=== PATIENT | male | born 1955 ===

== ENCOUNTER 2018-09-04 13:13 | Inpatient (IN) | payer OTHER ==
--- NOTE | 2018-09-04 13:28 | PDOC ---
History of Present Illness - General Chief Complaint: Weakness Stated Complaint: CHEST PAIN,AMS History Source: Patient Exam Limitations: No Limitations - History of Present Illness Initial Comments: 09/04/18 13:53 63 yo M with a hx of schizophrenia paranoia type, HTN, and HLD presents to the emergency department PAT with altered mental status per his bilingual social worker at [facility]. Per the bilingual social worker, he presented this afternoon with slurred speech , labile consciousness, unable to tie his shoes, and having unsteady gait. At baseline, he knows everyone around him, the date, where is at, and with a steady gait and appropriate articulation. When the patient was asked why he was acting like this earlier, he said because of bad dreams. Denies any symptoms and states he feels perfectly fine. Denies the following: fever, chills, nausea , vomiting, visual changes, nausea, vomiting, nasal congestion/rhinorrhea, ear/ nose/throat pain, SOB, chest pain, abdominal pain, dysuria, hematuria, diarrhea , melena, hematochezia, and leg pain/swelling. Denies recent sick contacts. Pmhx: Refer to above Shx: None Allergies: haloperidol, mobaine, stellacine Social: Denies substance abuse and alcohol. Endorses tobacco. Past History - Past Medical History Allergies/Adverse Reactions: Allergies Allergy/AdvReac Type Severity Reaction Status Date / Time haloperidol [From Haldol] Allergy Verified 09/04/18 13:32 mobaine Allergy Uncoded 09/04/18 13:32 stellacine Allergy Uncoded 09/04/18 13:32 Review of Systems - Review of Systems Able to Perform ROS?: Yes Is the patient limited Serbian proficient: No Constitutional: No: Chills, Diaphoresis, Fever, Malaise, Weakness HEENTM: No: Eye Pain, Recent change in vision, Ear Pain, Nose Pain, Throat Pain , Mouth Pain, Difficulty Swallowing, Mouth Swelling Respiratory: No: Cough, Shortness of Breath, SOB with Exertion, Hemoptysis Cardiac (ROS): No: Chest Pain, Edema, Irregular Heart Rate, Lightheadedness, Palpitations, Syncope ABD/GI: No: Constipated, Diarrhea, Nausea, Poor Appetite, Poor Fluid Intake, Rectal Bleeding, Vomiting, Indigestion, Abdominal cramping, Tarry Stools : No: Burning, Dysuria, Discharge, Hematuria, Pain, Urgency Musculoskeletal: No: Back Pain, Muscle Pain, Neck Pain Integumentary: No: Erythema, Lesions, Rash Neurological: No: Headache, Seizure, Weakness, Unsteady Gait, Dizziness Psychiatric: No: Stressors Endocrine: No: Unexplained Weight Loss Hematologic/Lymphatic: No: Anemia *Physical Exam - Physical Exam General Appearance: Yes: Nourished, Appropriately Dressed, Thin. No: Apparent Distress, Intoxicated HEENT: positive: EOMI, NETO, Normal Voice, Symmetrical, Hearing Grossly Normal. negative: Pale Conjunctivae, Scleral Icterus (R), Scleral Icterus (L), Muffled /Hoarse voice, Nasal Congestion, Rhinorrhea, Excessive drooling Neck: positive: Trachea midline. negative: Tender, Lymphadenopathy (R), Lymphadenopathy (L), Tender lateral, Tender midline Respiratory/Chest: positive: Lungs Clear, Normal Breath Sounds. negative: Chest Tender, Respiratory Distress, Accessory Muscle Use, Decreased Breath Sounds, Paradoxal Breathing, Crackles, Rales, Rhonchi, Stridor, Wheezing Cardiovascular: positive: Regular Rhythm, Regular Rate, S1, S2. negative: Systolic Murmur Gastrointestinal/Abdominal: positive: Normal Bowel Sounds, Flat, Soft. negative : Tender, Organomegaly, Pulsatile Mass, Rebound Lymphatic: negative: Adenopathy Musculoskeletal: positive: Normal Inspection. negative: CVA Tenderness, CVA Tenderness (R), CVA Tenderness (L), Vertebral Tenderness Extremity: positive: Normal Capillary Refill, Normal Inspection, Normal Range of Motion, Pelvis Stable. negative: Tender, Swelling, Calf Tenderness Integumentary: positive: Normal Color, Dry, Warm. 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 negative: Fully Oriented (oriented to self and place. Knows the month and year. Does not know the day), Facial Droop, Sensory Deficit, Finger to Nose ED Treatment Course - LABORATORY CBC & Chemistry Diagram: 09/04/18 13:45 09/04/18 13:45 Medical Decision Making - Medical Decision Making 09/04/18 14:35 63 yo M with a hx of schizophrenia paranoia type, HTN, and HLD presents to the emergency department [place] with altered mental status per his bilingual social worker at [facility] Initial vitals: Initial Vital Signs Temp Pulse Resp BP Pulse Ox 101.6 F H 83 20 119/66 95 09/04/18 13:27 09/04/18 13:27 09/04/18 13:27 09/04/18 13:27 09/04/18 13:27 Work up: patient presents with AMS to the bilingual social worker. the patient denies all symptoms and states he is normal. on physical exam, his eyes were constricted and he had decreased breath sounds on the right side. will order the following labs to elucidate infectious source: cbc, cmp, trops, UA, urine culture, urine tox, lactic acid, cxr, ekg. treatment: initially will give 1 L of NS and 1 gram of acetaminophen. 09/04/18 14:55
[2018-09-04] MEDS ORDERED: ACETAMINOPHEN INJECTION 100 ML IVPB ONE (13:31)
[2018-09-04] MEDS ORDERED: ACETAMINOPHEN 1000 MG/100 ML VIAL (NON FORMULARY) IVPB ONE (13:51)
[2018-09-04] MEDS ORDERED: SODIUM CHLORIDE 1,000 ML IV STA (13:51)
[2018-09-04 14:31] LABS: BASO % 0.5 % (0-2.0); HEMATOCRIT 33.3 % (35.4-49); HEMOGLOBIN 11.8 GM/dL (11.7-16.9); MCH 29.8 pg (25.7-33.7); MCHC 35.5 g/dl (32.0-35.9); MEAN PLT VOLUME 7.4 fl (7.5-11.1); MONO % 10.3 % (3.8-10.2); NEUT % 83.2 % (42.8-82.8); PLATELET COUNT 292 K/MM3 (134-434); RBC 3.97 M/mm3 (4.00-5.60); RDW 14.6 % (11.9-15.9); VENOUS PC02 32.9 mmHg (38-52); VENOUS PH 7.43 (7.32-7.42); VENOUS PO2 38.8 mmHg (28-48); WHITE BLOOD COUNT 9.9 K/mm3 (4.0-10.0)
[2018-09-04 14:44] LABS: INR 1.14 (0.83-1.09); PROTHROMBIN TIME (PATIENT) 13.5 SEC (9.7-13.0)
[2018-09-04 14:46] LABS: ACTIVATED PTT 47.5 SECONDS (25.2-36.5)
[2018-09-04 14:59] LABS: ALBUMIN 2.9 g/dl (3.4-5.0); ALK PHOS 73 U/L (45-117); ANION GAP 10 MMOL/L (8-16); BILIRUBIN,TOTAL 0.3 mg/dL (0.2-1); BLOOD UREA NITROGEN 32 mg/dL (7-18); CALCIUM 8.6 mg/dL (8.5-10.1); CHLORIDE 98 mmol/L (98-107); CO2 22 mmol/L (21-32); CREATININE 1.2 mg/dL (0.55-1.3); GLUCOSE,RANDOM 132 mg/dL (74-106); POTASSIUM 3.8 mmol/L (3.5-5.1); SGOT/AST 29 U/L (15-37); SGPT/ALT 23 U/L (13-61); SODIUM 130 mmol/L (136-145); TOT PROT 7.9 g/dl (6.4-8.2)
--- NOTE | 2018-09-04 15:44 | PDOC ---
Attending Attestation - Resident Resident Name: SybilBarney - ED Attending Attestation I have performed the following: I have examined & evaluated the patient, The case was reviewed & discussed with the resident, I agree w/resident's findings & plan - HPI HPI: 09/04/18 15:41 63-year-old male with multiple medical problems brought in by his counter caser for altered mental status and generalized confusion today. Appear generally weak , pt has no specific complaints. - Physicial Exam PE: 09/04/18 15:41 fever, HD stable well appearing, improved mental status s/p tylenol per counter caser at bedside decreased breath sounds R mid lung field and L base, no crackles or wheeze heart regular abd soft no edema/calf ttp - Medical Decision Making 09/04/18 15:43 63y/o M with fever. sepsis workup initiated ivf, anti-pyretic ua, cxr abx mental status improved after defervesced, + findings on cxr. meningitis less likely admit 09/04/18 16:23 pna on cxr, labs wnl, lactate 1.[address] head pending admit Heart Score/ECG Review #1 ECG reviewed & interpreted by me at: 13:34 General ECG Interpretation: Sinus Rhythm, Normal Rate (81), Normal Intervals ( qtc 413), No acute ischemic changes
[2018-09-04 16:04] LABS: URINE APPEARANCE SLCLOUDY; URINE BILIRUBIN NEGATIVE (<2.0 mg/dL); URINE COLOR AMBER; URINE GLUCOSE (UA) NEGATIVE (NEGATIVE); URINE KETONE TRACE (NEGATIVE); URINE LEUK ESTERASE NEGATIVE (NEGATIVE); URINE NITRITE NEGATIVE (NEGATIVE); URINE PROTEIN 1+ (NEGATIVE); URINE UROBILINOGEN 4.0 E.U/dl mg/dL (0.2-1.0)
[2018-09-04 16:13] LABS: EPI CELLS RARE /HPF (FEW); URINE MUCUS RARE
[2018-09-04] MEDS ORDERED: AZITHROMYCIN IVPB 500 MG in DEXTROSE 5%-WATER - 250 ML IVPB ONE (16:23)
[2018-09-04] MEDS ORDERED: CEFTRIAXONE 1,000 MG in DEXTROSE 5%-WATER - 50 ML IVPB ONE (16:23)
[2018-09-04] MEDS ORDERED: AZITHROMYCIN IVPB 500 MG/250 ML BAG IVPB ONE (17:01)
[2018-09-04] MEDS ORDERED: CEFTRIAXONE 1 GM/50 ML BAG ONE (17:01)
[2018-09-04] MEDS ORDERED: ALBUTEROL SO4 0.083% IH SOL 2.5 MG/3 ML VIAL.NEB. NEB PRN (18:12)
[2018-09-04 18:32] LABS: COCAINE, UR NEGATIVE ng/ml (CUTOFF=300); METHADONE, UR NEGATIVE ng/ml (CUTOFF=300); OPIATES, URI NEGATIVE ng/ml (CUTOFF=300); PHENCYCLIDINE,URINE NEGATIVE ng/ml (CUTOFF=25); URINE AMPHETAMINES NEGATIVE ng/ml (CUTOFF=500); URINE BARBITURATES NEGATIVE ng/ml (CUTOFF=200); URINE BENZODIAZEPINES NEGATIVE ng/ml (CUTOFF=200)
[2018-09-04] MEDS: SODIUM CHLORIDE 1,000 ML IV SCH (18:32)
--- NOTE | 2018-09-04 18:36 | HP ---
CHIEF COMPLAINT: weakness, altered mental status PCP: HISTORY OF PRESENT ILLNESS: 63 yo M with a hx of schizophrenia paranoia type, HTN, and HLD presents to the emergency department NOEL with altered mental status per his delinquency prevention social worker at [employer]. Per the delinquency prevention social worker, he presented this afternoon with slurred speech , labile consciousness, unable to tie his shoes, and having unsteady gait. At baseline, he knows everyone around him, the date, where he is, and with a steady gait and appropriate articulation. pt seen in ED, sleepy, arousable, garbled speech, Denies the following: fever, chills, nausea, vomiting, visual changes, nausea, vomiting, nasal congestion/rhinorrhea, ear/nose/throat pain, SOB, chest pain, abdominal pain, dysuria, hematuria, diarrhea, melena, hematochezia, and leg pain /swelling. ER course was notable for: (1) Febrile 101.6 (2)Chest xray left lung infiltrate (3)CT head no acute findings Recent Travel: PAST MEDICAL HISTORY:Schizophrenia, HTN, DM, BPH PAST SURGICAL HISTORY: Social History: Smoking:denies Alcohol:denies Drugs: denies Family History: Allergies haloperidol [From Haldol] Allergy (Verified 09/04/18 13:32) mobaine Allergy (Uncoded 09/04/18 13:32) stellacine Allergy (Uncoded 09/04/18 13:32) HOME MEDICATIONS: Home Medications Medication Instructions Recorded Albuterol Sulfate Inhaler - 1 - 2 inh PO Q4H 09/04/18 [Ventolin Hfa Inhaler -] Citalopram Hydrobromide 20 mg PO DAILY 09/04/18 [Citalopram HBr] Clozapine 200 mg PO TID 09/04/18 Cyclobenzaprine HCl 10 mg PO TID 09/04/18 Finasteride 5 mg PO DAILY 09/04/18 Hydroxyzine HCl 50 mg PO DAILY 09/04/18 Linagliptin [Tradjenta] 5 mg PO DAILY 09/04/18 Meloxicam 15 mg PO DAILY 09/04/18 Ramipril [Altace] 5 mg PO DAILY 09/04/18 Tamsulosin HCl 0.4 mg PO DAILY 09/04/18 metFORMIN HCL [Metformin HCl] 500 mg PO DAILY 09/04/18 REVIEW OF SYSTEMS unable to assess, alt mental status PHYSICAL EXAMINATION Vital Signs - 24 hr 09/04/18 09/04/18 09/04/18 13:27 13:47 14:00 Temperature 101.6 F H 101.6 F H Pulse Rate 83 Respiratory 20 Rate Blood Pressure 119/66 O2 Sat by Pulse 95 97 Oximetry (%) GENERAL: Awake, alert, and fully oriented, in no acute distress. HEAD: Normal with no signs of trauma. EYES: Pupils equal, round and reactive to light, extraocular movements intact, sclera anicteric, conjunctiva clear. No lid lag. EARS, NOSE, THROAT: Ears normal, nares patent, oropharynx clear without exudates. Moist mucous membranes. NECK: Normal range of motion, supple without lymphadenopathy, JVD, or masses. LUNGS: Breath sounds equal, clear to auscultation bilaterally. No wheezes, and no crackles. No accessory muscle use. HEART: Regular rate and rhythm, normal S1 and S2 without murmur, rub or gallop. ABDOMEN: Soft, nontender, not distended, normoactive bowel sounds, no guarding, no rebound, no masses. No hepatomegaly or splenomegaly. MUSCULOSKELETAL: Normal range of motion at all joints. No bony deformities or tenderness. No CVA tenderness. UPPER EXTREMITIES: 2+ pulses, warm, well-perfused. No cyanosis. No clubbing. No peripheral edema. LOWER EXTREMITIES: 2+ pulses, warm, well-perfused. No calf tenderness. No peripheral edema. NEUROLOGICAL: Cranial nerves II-XII intact. Normal speech. Normal gait. PSYCHIATRIC: Cooperative. Good eye contact. Appropriate mood and affect. SKIN: Warm, dry, normal turgor, no rashes or lesions noted, normal capillary refill. Laboratory Results - last 24 hr 09/04/18 09/04/18 09/04/18 13:45 13:45 13:45 WBC 9.9 RBC 3.97 L Hgb 11.8 Hct 33.3 L MCV 84.0 MCH 29.8 MCHC 35.5 RDW 14.6 Plt Count 292 MPV 7.4 L Absolute Neuts (auto) 8.2 H Neutrophils % 83.2 H Lymphocytes % 6.0 L Monocytes % 10.3 H Eosinophils % 0.0 Basophils % 0.5 Nucleated RBC % 0 PT with INR 13.50 H INR 1.14 H PTT (Actin FS) 47.5 H VBG pH 7.43 H POC VBG pCO2 32.9 L POC VBG pO2 38.8 Mixed VBG HCO3 21.3 Sodium Potassium Chloride Carbon Dioxide Anion Gap BUN Creatinine Creat Clearance w eGFR Random Glucose Lactic Acid Calcium Total Bilirubin AST ALT Alkaline Phosphatase Creatine Kinase Creatine Kinase Index CK-MB (CK-2) Troponin I Total Protein Albumin Urine Color Urine Appearance Urine pH Ur Specific [place] Urine Protein Urine Glucose (UA) Urine Ketones Urine Blood Urine Nitrite Urine Bilirubin Urine Urobilinogen Ur Leukocyte Esterase Urine WBC (Auto) Urine RBC (Auto) Ur Epithelial Cells Urine Mucus 09/04/18 09/04/18 09/04/18 13:45 13:45 13:45 WBC RBC Hgb Hct MCV MCH MCHC RDW Plt Count MPV Absolute Neuts (auto) Neutrophils % Lymphocytes % Monocytes % Eosinophils % Basophils % Nucleated RBC % PT with INR INR PTT (Actin FS) VBG pH POC VBG pCO2 POC VBG pO2 Mixed VBG HCO3 Sodium 130 L Potassium 3.8 Chloride 98 Carbon Dioxide 22 Anion Gap 10 BUN 32 H Creatinine 1.2 Creat Clearance w eGFR > 60 Random Glucose 132 H Lactic Acid 1.5 Calcium 8.6 Total Bilirubin 0.3 AST 29 ALT 23 Alkaline Phosphatase 73 Creatine Kinase 182 Creatine Kinase Index 0.0 CK-MB (CK-2) < 1.0 Troponin I < 0.02 Total Protein 7.9 Albumin 2.9 L Urine Color Urine Appearance Urine pH Ur Specific [place] Urine Protein Urine Glucose (UA) Urine Ketones Urine Blood Urine Nitrite Urine Bilirubin Urine Urobilinogen Ur Leukocyte Esterase Urine WBC (Auto) Urine RBC (Auto) Ur Epithelial Cells Urine Mucus 09/04/18 09/04/18 13:45 15:48 WBC RBC Hgb Hct MCV MCH MCHC RDW Plt Count MPV Absolute Neuts (auto) Neutrophils % Lymphocytes % Monocytes % Eosinophils % Basophils % Nucleated RBC % PT with INR INR PTT (Actin FS) VBG pH POC VBG pCO2 POC VBG pO2 Mixed VBG HCO3 Sodium Potassium Chloride Carbon Dioxide Anion Gap BUN Creatinine Creat Clearance w eGFR Random Glucose Lactic Acid Calcium Total Bilirubin AST ALT Alkaline Phosphatase Creatine Kinase Creatine Kinase Index CK-MB (CK-2) < 1.0 Troponin I Total Protein Albumin Urine Color Ivelisse Urine Appearance Slcloudy Urine pH 5.0 Ur Specific [place] 1.023 Urine Protein 1+ H Urine Glucose (UA) Negative Urine Ketones Trace H Urine Blood 1+ H Urine Nitrite Negative Urine Bilirubin Negative Urine Urobilinogen 4.0 e.u/dl Ur Leukocyte Esterase Negative Urine WBC (Auto) 11 Urine RBC (Auto) 4 Ur Epithelial Cells Rare Urine Mucus Rare ASSESSMENT/PLAN: Michael Trotter is a 63 yr old M, medical condition, HTN, DM, Schizophrenia, HLD, BPH admitted for Admitting Diagnosis PNA Altered mental status Active Problems HTN HLD DM Schizophrenia BPH #CAP -duonebs prn -IVF -fio2 to keep o2 >94% -cont with rocephin, azithro IV -blood, urine cx pending -lactic wnl #Hyponatremia-mild -IVF 0.9ns #AMS likely due to infectious process -CT head negative -pt on flexeril, hydroxyzine- will hold #Schizophrenia-stable -on Clozapine #HTN-controlled -resume Altace #BPH -on flomax, proscar #DM -FS monitoring -ISC -hold po meds -a1c ordered GI/DVT Prophylaxis Dispo: requires inpatient treatment Visit type - Emergency Visit Emergency Visit: Yes ED Registration Date: 09/04/18 Care time: The patient presented to the Emergency Department on the above date and was hospitalized for further evaluation of their emergent condition. - New Patient This patient is new to me today: Yes Date on this admission: 09/04/18 - Critical Care Critical Care patient: No
[2018-09-04] MEDS ORDERED: ACETAMINOPHEN 325 MG TABLET (FP) PO PRN (19:07)
[2018-09-04] MEDS ORDERED: cloZAPine 100 MG TABLET PO ONE (22:45)
[2018-09-04] MEDS: INSULIN (NOVOLOG) ASPART 100 UNITS/ML 10ML VIAL SQ SCH (23:03)
[2018-09-04] MEDS: HEPARIN NA (PORCINE) 5,000 UNITS/ML 1ML VIAL SQ SCH (23:04)
[2018-09-05 04:38] VITALS: BMI 18.8
[2018-09-05] MEDS: SODIUM CHLORIDE 1,000 ML IV SCH ×2 (05:59→23:15)
[2018-09-05] MEDS: INSULIN (NOVOLOG) ASPART 100 UNITS/ML 10ML VIAL SQ SCH ×4 (06:12→21:55)
[2018-09-05 06:58] LABS: BASO % 0.4 % (0-2.0); HEMATOCRIT 29.1 % (35.4-49); HEMOGLOBIN 9.5 GM/dL (11.7-16.9); LYMPH % 12.7 % (8-40); MCH 27.9 pg (25.7-33.7); MCHC 32.7 g/dl (32.0-35.9); MEAN CELL VOLUME 85.3 fl (80-96); MEAN PLT VOLUME 7.1 fl (7.5-11.1); MONO % 13.7 % (3.8-10.2); NEUT % 73.2 % (42.8-82.8); PLATELET COUNT 276 K/MM3 (134-434); RBC 3.42 M/mm3 (4.00-5.60); RDW 14.7 % (11.9-15.9); WHITE BLOOD COUNT 8.3 K/mm3 (4.0-10.0)
[2018-09-05 07:24] LABS: ALBUMIN 2.2 g/dl (3.4-5.0); ALK PHOS 61 U/L (45-117); ANION GAP 8 MMOL/L (8-16); BILIRUBIN,TOTAL 0.2 mg/dL (0.2-1); BLOOD UREA NITROGEN 19 mg/dL (7-18); CALCIUM 8.1 mg/dL (8.5-10.1); CHLORIDE 103 mmol/L (98-107); CO2 23 mmol/L (21-32); CREATININE 0.7 mg/dL (0.55-1.3); GLUCOSE,RANDOM 104 mg/dL (74-106); MAGNESIUM 2.2 mg/dL (1.8-2.4); POTASSIUM 3.8 mmol/L (3.5-5.1); SGOT/AST 23 U/L (15-37); SGPT/ALT 20 U/L (13-61); SODIUM 134 mmol/L (136-145); TOT PROT 6.4 g/dl (6.4-8.2)
[2018-09-05] MEDS: TAMSULOSIN HCL 0.4 MG CAP PO SCH (08:41)
[2018-09-05] MEDS ORDERED: DEXTROSE 5%-WATER 100 ML IVPB ONE (09:40)
[2018-09-05] MEDS ORDERED: cefTRIAXone SODIUM 1 GM VIAL ONE (09:40)
[2018-09-05] MEDS: AZITHROMYCIN IVPB 500 MG/250 ML BAG IVPB SCH (09:49)
[2018-09-05] MEDS: HEPARIN NA (PORCINE) 5,000 UNITS/ML 1ML VIAL SQ SCH ×2 (09:51→21:55)
[2018-09-05] MEDS: PANTOPRAZOLE 40 MG TABLET (FP) PO SCH (09:51)
[2018-09-05] MEDS: FINASTERIDE 5 MG TABLET (FP) PO SCH (09:51)
[2018-09-05] MEDS: RAMIPRIL 5 MG CAPSULE (FP) PO SCH (09:51)
--- NOTE | 2018-09-05 09:51 | EKG ---
Test Reason : Blood Pressure : / mmHG Vent. Rate : 081 BPM Atrial Rate : 081 BPM P-R Int : 156 ms QRS Dur : 090 ms QT Int : 356 ms P-R-T Axes : 041 056 057 degrees QTc Int : 413 ms NORMAL SINUS RHYTHM NORMAL ECG NO PREVIOUS ECGS AVAILABLE Confirmed by YANDY CAMPBELL, COLLIN ([id number]) on 09/05/2018 9:51:02 AM Referred By: Confirmed By:COLLIN KEBEDE MD
[2018-09-05] MEDS: CEFTRIAXONE 1 GM in DEXTROSE 5%-WATER 100 ML IVPB SCH (10:25)
--- NOTE | 2018-09-05 15:02 | CON.NEURO ---
Consult Consult Specialty:: Darci Referred by:: Jazzmine - History of Present Illness History of Present Illness: 63-year-old right-handed -Bhut[place] man with history of Mild dementia Coronary artery disease Osteoarthritis hypertension Benign prostatic hypertrophy Bronchial asthma Presented after an episode of noted altered mental status. Patient was noted by the social worker aide to be confused week with slurred speech. Patient presented to the emergency room was hemodynamically unstable chest x-ray confirmed questionable left-sided pneumonia patient was admitted to the medical floor. I evaluated the patient and assessed him on the medical floor. Since the admission no report of any seizure-like activity. patient himself is a poor historian most of the history was obtained from the consultation and history and physical. - History Source History Provided By: Medical Record Limitations to Obtaining History: Clinical Condition - Alcohol/Substance Use Hx Alcohol Use: No - Smoking History Smoking history: Current every day smoker Have you smoked in the past 12 months: Yes Aproximately how many cigarettes per day: 5 Home Medications - Allergies Allergies/Adverse Reactions: Allergies Allergy/AdvReac Type Severity Reaction Status Date / Time haloperidol [From Haldol] Allergy Verified 09/04/18 13:32 mobaine Allergy Uncoded 09/04/18 13:32 stellacine Allergy Uncoded 09/04/18 13:32 - Home Medications Home Medications: Ambulatory Orders Albuterol Sulfate Inhaler - [Ventolin Hfa Inhaler -] 1 - 2 inh PO Q4H 09/04/18 Citalopram Hydrobromide [Citalopram HBr] 20 mg PO DAILY 09/04/18 Clozapine 200 mg PO TID 09/04/18 Cyclobenzaprine HCl 10 mg PO TID 09/04/18 Finasteride 5 mg PO DAILY 09/04/18 Hydroxyzine HCl 50 mg PO DAILY 09/04/18 Linagliptin [Tradjenta] 5 mg PO DAILY 09/04/18 Meloxicam 15 mg PO DAILY 09/04/18 Ramipril [Altace] 5 mg PO DAILY 09/04/18 Tamsulosin HCl 0.4 mg PO DAILY 09/04/18 metFORMIN HCL [Metformin HCl] 500 mg PO DAILY 09/04/18 Family Disease History - Family Disease History Family History: Unable to Obtain Review of Systems - Review of Systems Constitutional: reports: No Symptoms Eyes: reports: No Symptoms Neurological: reports: Headache, Incoordination Physical Exam-Neuro Vital Signs: Vital Signs Temperature 98.2 F 09/05/18 14:37 Pulse Rate 75 09/05/18 14:37 Respiratory Rate 17 09/05/18 14:37 Blood Pressure 103/56 L 09/05/18 14:37 O2 Sat by Pulse Oximetry (%) 98 09/05/18 09:00 Constitutional: Yes: Well Nourished Neck: Yes: WNL Cardiovascular: Yes: WNL Labs: CBC, BMP 09/05/18 06:00 09/05/18 06:00 INR, PTT INR 1.14 (0.83-1.09) H 09/04/18 13:45 - Neuro Exam Level Of Consciousness: Yes: Oriented to Person, Oriented to Place, Oriented to Time Eyes: Yes: PERRLA Speech: WNL Dominant Hand: Right Mini Mental Exam: 23 Cranial Nerves II-XII Intact: Yes Gag: Present DTR's: 1+ Left Bicep, 1+ Right Bicep, 1+ Left Brachioradialis, 1+ Right Brachioradialis Response to light touch: Normal Response to pain prick: Normal Response to temperature: Abnormal Response to vibration: Abnormal Motor Strength: 3/5: Left Arm, Right Arm, Left Leg, Right Leg Gait: Deferred Imaging - Results Cat Scan: Image Reviewed Problem List - Problems (1) Altered mental status Assessment/Plan: 63-year-old man with multiple medical problem presented with an episode of altered mental status resolving Resolving toxic metabolic encephalopathy. No evidence of TIA or stroke 1. Agree to plantar admitted to monitor. 2. Follow-up with infectious disease specialist. 3. Blood cultures. 4. Chest PT. 5. Baby aspirin. 6. Out of bed to the chair as tolerated The government referring spatial neurological consultation Code(s): R41.82 - ALTERED MENTAL STATUS, UNSPECIFIED
[2018-09-05] MEDS ORDERED: PT OWN MED DRAWER 7, Y5N ONE (17:05)
--- NOTE | 2018-09-05 18:09 | PN ---
Progress Note, Physician Chief Complaint: AWAKE EATING BREAKFAST WHEN I SAW HIM THIS AM PATIENT IS ABLE TO REMEMBER HIS DOCTORS IN THE COMMUNITY EVENTS AND NOTES REVIEWED - Current Medication List Current Medications: Active Medications Acetaminophen (Tylenol -) 650 mg PO Q4H PRN PRN Reason: FEVER Last Admin: 09/05/18 17:26 Dose: 650 mg Albuterol Sulfate (Ventolin 0.083% Nebulizer Soln -) 1 amp NEB Q6H PRN PRN Reason: SHORT OF BREATH/WHEEZING Clozapine (Clozaril -) 200 mg PO TID [facility] Finasteride (Proscar -) 5 mg PO DAILY [facility] Last Admin: 09/05/18 09:51 Dose: 5 mg Heparin Sodium (Porcine) (Heparin -) 5,000 unit SQ BID [facility] Last Admin: 09/05/18 09:51 Dose: 5,000 unit Sodium Chloride (Normal Saline -) 1,000 mls @ 75 mls/hr IV ASDIR [facility] Last Admin: 09/05/18 05:59 Dose: 75 mls/hr Azithromycin (Zithromax 500mg Ivpb (Pre-Docked)) 500 mg in 250 mls @ 250 mls/ hr IVPB DAILY [facility] Last Admin: 09/05/18 09:49 Dose: 250 mls/hr Ceftriaxone Sodium 1 gm/ (Dextrose) 100 mls @ 200 mls/hr IVPB DAILY [facility]; Protocol Last Admin: 09/05/18 10:25 Dose: 200 mls/hr Insulin Aspart (Novolog Vial) 1 units SQ ACHS [facility]; Protocol Last Admin: 09/05/18 16:49 Dose: Not Given Pantoprazole Sodium (Protonix -) 40 mg PO DAILY [facility] Last Admin: 09/05/18 09:51 Dose: 40 mg Ramipril (Altace -) 5 mg PO DAILY [facility] Last Admin: 09/05/18 09:51 Dose: 5 mg Tamsulosin HCl (Flomax -) 0.4 mg PO DAILY@0830 [facility] Last Admin: 09/05/18 08:41 Dose: 0.4 mg - Objective Vital Signs: Vital Signs Temperature 98.2 F 09/05/18 14:37 Pulse Rate 75 09/05/18 14:37 Respiratory Rate 17 09/05/18 14:37 Blood Pressure 103/56 L 09/05/18 14:37 O2 Sat by Pulse Oximetry (%) 98 09/05/18 09:00 Constitutional: Yes: Mild Distress Eyes: Yes: WNL HENT: Yes: WNL Neck: Yes: WNL Cardiovascular: Yes: WNL Respiratory: Yes: WNL Gastrointestinal: Yes: WNL Genitourinary: Yes: WNL Musculoskeletal: Yes: WNL Extremities: Yes: WNL Edema: No Peripheral Pulses WNL: Yes Integumentary: Yes: WNL Wound/Incision: Yes: Clean/Dry Neurological: Yes: Pre-Existing Deficit ...Motor Strength: LLE, RLE Psychiatric: Yes: Other Labs: CBC, BMP 09/05/18 06:00 09/05/18 06:00 INR, PTT INR 1.14 (0.83-1.09) H 09/04/18 13:45 Problem List - Problems (1) Altered mental status Code(s): R41.82 - ALTERED MENTAL STATUS, UNSPECIFIED (2) Schizophrenia Code(s): F20.9 - SCHIZOPHRENIA, UNSPECIFIED (3) Pneumonia Code(s): J18.9 - PNEUMONIA, UNSPECIFIED ORGANISM Assessment/Plan PNEUMONIA RESTARTING MEDICATIONS NEUROLOGY AND PSYCHIATRY EVAL PNA ON IV ABX NEBS TOXIC METABOLIC ENCEPHELOPATHY
[2018-09-05] MEDS: cloZAPine 100 MG TABLET PO SCH ×2 (20:46→21:55)
[2018-09-06] MEDS: cloZAPine 100 MG TABLET PO SCH ×3 (06:51→22:10)
[2018-09-06] MEDS: INSULIN (NOVOLOG) ASPART 100 UNITS/ML 10ML VIAL SQ SCH ×4 (06:56→22:10)
[2018-09-06] MEDS ORDERED: DEXTROSE 5%-WATER 100 ML IVPB ONE (09:52)
[2018-09-06] MEDS ORDERED: cefTRIAXone SODIUM 1 GM VIAL ONE (09:52)
[2018-09-06] MEDS: PANTOPRAZOLE 40 MG TABLET (FP) PO SCH (10:11)
[2018-09-06] MEDS: RAMIPRIL 5 MG CAPSULE (FP) PO SCH (10:11)
[2018-09-06] MEDS: TAMSULOSIN HCL 0.4 MG CAP PO SCH (10:11)
[2018-09-06] MEDS: HEPARIN NA (PORCINE) 5,000 UNITS/ML 1ML VIAL SQ SCH ×2 (10:12→22:10)
[2018-09-06] MEDS: CEFTRIAXONE 1 GM in DEXTROSE 5%-WATER 100 ML IVPB SCH (10:12)
[2018-09-06] MEDS: FINASTERIDE 5 MG TABLET (FP) PO SCH (10:12)
[2018-09-06] MEDS: SODIUM CHLORIDE 1,000 ML IV SCH ×2 (11:32→18:01)
[2018-09-06] MEDS: AZITHROMYCIN IVPB 500 MG/250 ML BAG IVPB SCH (11:33)
--- NOTE | 2018-09-06 12:50 | PN ---
Progress Note, Physician Chief Complaint: AWAKE COMFORTABLE DENIES FEVER OR CHILLS - Current Medication List Current Medications: Active Medications Acetaminophen (Tylenol -) 650 mg PO Q4H PRN PRN Reason: FEVER Last Admin: 09/05/18 17:26 Dose: 650 mg Albuterol Sulfate (Ventolin 0.083% Nebulizer Soln -) 1 amp NEB Q6H PRN PRN Reason: SHORT OF BREATH/WHEEZING Clozapine (Clozaril -) 200 mg PO TID [facility] Last Admin: 09/06/18 06:51 Dose: 200 mg Finasteride (Proscar -) 5 mg PO DAILY [facility] Last Admin: 09/06/18 10:12 Dose: 5 mg Heparin Sodium (Porcine) (Heparin -) 5,000 unit SQ BID [facility] Last Admin: 09/06/18 10:12 Dose: 5,000 unit Sodium Chloride (Normal Saline -) 1,000 mls @ 75 mls/hr IV ASDIR [facility] Last Admin: 09/06/18 11:32 Dose: 75 mls/hr Azithromycin (Zithromax 500mg Ivpb (Pre-Docked)) 500 mg in 250 mls @ 250 mls/ hr IVPB DAILY [facility] Last Admin: 09/06/18 11:33 Dose: 250 mls/hr Ceftriaxone Sodium 1 gm/ (Dextrose) 100 mls @ 200 mls/hr IVPB DAILY [facility]; Protocol Last Admin: 09/06/18 10:12 Dose: 200 mls/hr Insulin Aspart (Novolog Vial) 1 units SQ ACHS [facility]; Protocol Last Admin: 09/06/18 11:41 Dose: Not Given Pantoprazole Sodium (Protonix -) 40 mg PO DAILY [facility] Last Admin: 09/06/18 10:11 Dose: 40 mg Ramipril (Altace -) 5 mg PO DAILY [facility] Last Admin: 09/06/18 10:11 Dose: 5 mg Tamsulosin HCl (Flomax -) 0.4 mg PO DAILY@0830 [facility] Last Admin: 09/06/18 10:11 Dose: 0.4 mg - Objective Vital Signs: Vital Signs Temperature 98.2 F 09/06/18 10:10 Pulse Rate 77 09/06/18 10:10 Respiratory Rate 17 09/06/18 10:10 Blood Pressure 151/76 09/06/18 10:10 O2 Sat by Pulse Oximetry (%) 98 09/05/18 21:00 Constitutional: Yes: Calm Eyes: Yes: WNL HENT: Yes: WNL Neck: Yes: WNL Cardiovascular: Yes: WNL Respiratory: Yes: Cough Gastrointestinal: Yes: WNL Genitourinary: Yes: WNL Musculoskeletal: Yes: WNL Extremities: Yes: WNL Edema: No Peripheral Pulses WNL: Yes Wound/Incision: Yes: Clean/Dry Neurological: Yes: Confusion ...Motor Strength: LLE, RLE Psychiatric: Yes: Other Labs: CBC, BMP 09/05/18 06:00 09/05/18 06:00 INR, PTT INR 1.14 (0.83-1.09) H 09/04/18 13:45 Problem List - Problems (1) Altered mental status Code(s): R41.82 - ALTERED MENTAL STATUS, UNSPECIFIED (2) Schizophrenia Code(s): F20.9 - SCHIZOPHRENIA, UNSPECIFIED (3) Pneumonia Code(s): J18.9 - PNEUMONIA, UNSPECIFIED ORGANISM Assessment/Plan PNEUMONIA RESTARTING MEDICATIONS NEUROLOGY AND PSYCHIATRY EVAL PNA ON IV ABX NEBS TOXIC METABOLIC ENCEPHELOPATHY [facility]
--- NOTE | 2018-09-06 15:20 | CON.PULM ---
Consult Consult Specialty:: PULMONARY Referred by:: Dr. Dover Reason for Consultation:: pneumonia - History of Present Illness Chief Complaint: shortness of breath History of Present Illness: 63yo male with h/o HTN, hyperlipidemia, COPD, schizophrenia who was admitted with worsening shortness of breath and altered mental status. Reports shortness of breath x 3 days. +nonproductive cough and wheezing. No chest pain or discomfort. He is a long time smoker, started at age 12, now down to 1/2 PPD. Reports fevers, chills. No family history of cancer. He is maintained on Spiriva and Ventolin. - History Source History Provided By: Patient, Medical Record - Past Medical History Cardio/Vascular: Yes: HTN, Hyperlipdemia Pulmonary: Yes: COPD - Alcohol/Substance Use Hx Alcohol Use: No - Smoking History Smoking history: Current every day smoker Have you smoked in the past 12 months: Yes Aproximately how many cigarettes per day: 5 Home Medications - Allergies Allergies/Adverse Reactions: Allergies Allergy/AdvReac Type Severity Reaction Status Date / Time haloperidol [From Haldol] Allergy Verified 09/04/18 13:32 mobaine Allergy Uncoded 09/04/18 13:32 stellacine Allergy Uncoded 09/04/18 13:32 - Home Medications Home Medications: Ambulatory Orders Albuterol Sulfate Inhaler - [Ventolin Hfa Inhaler -] 1 - 2 inh PO Q4H 09/04/18 Citalopram Hydrobromide [Citalopram HBr] 20 mg PO DAILY 09/04/18 Clozapine 200 mg PO TID 09/04/18 Cyclobenzaprine HCl 10 mg PO TID 09/04/18 Finasteride 5 mg PO DAILY 09/04/18 Hydroxyzine HCl 50 mg PO DAILY 09/04/18 Linagliptin [Tradjenta] 5 mg PO DAILY 09/04/18 Meloxicam 15 mg PO DAILY 09/04/18 Ramipril [Altace] 5 mg PO DAILY 09/04/18 Tamsulosin HCl 0.4 mg PO DAILY 09/04/18 metFORMIN HCL [Metformin HCl] 500 mg PO DAILY 09/04/18 Review of Systems - Review of Systems Constitutional: reports: Chills, Fever, Weakness Eyes: denies: Recent Change in Vision HENT: denies: Nasal Congestion, Throat Pain Neck: denies: Stiffness, Tenderness Cardiovascular: reports: Shortness of Breath. denies: Chest Pain, Edema, Palpitations Respiratory: reports: Cough, Wheezing. denies: Hemoptysis Gastrointestinal: denies: Abdominal Pain, Nausea, Vomiting Genitourinary: denies: Dysuria, Hematuria Neurological: denies: Dizziness, Headache Endocrine: denies: Unexplained Weight Loss Physical Exam Vital Sings: Vital Signs Temperature 99 F 09/06/18 14:04 Pulse Rate 66 09/06/18 14:04 Respiratory Rate 16 09/06/18 14:04 Blood Pressure 142/58 L 09/06/18 14:04 O2 Sat by Pulse Oximetry (%) 98 09/06/18 10:10 Constitutional: Yes: Calm Eyes: Yes: Conjunctiva Clear, EOM Intact HENT: Yes: Atraumatic, Normocephalic Neck: Yes: Supple, Trachea Midline Cardiovascular: Yes: Regular Rate and Rhythm Respiratory: Yes: Rhonchi (scattered) ...Clubbing: No Gastrointestinal: Yes: Normal Bowel Sounds, Soft. No: Tenderness Edema: No Neurological: Yes: Alert, Oriented Labs: CBC, BMP 09/05/18 06:00 09/05/18 06:00 Imaging - Results Chest X-ray: Report Reviewed, Image Reviewed (ISABEL infiltrate) Problem List - Problems (1) Pneumonia Code(s): J18.9 - PNEUMONIA, UNSPECIFIED ORGANISM (2) Hyponatremia Code(s): E87.1 - HYPO-OSMOLALITY AND HYPONATREMIA (3) Schizophrenia Code(s): F20.9 - SCHIZOPHRENIA, UNSPECIFIED Assessment/Plan Pneumonia Acute COPD Exacerbation Hyponatremia HTN Hyperlipidemia Smoker - continue antibiotics - short course of steroids x 48hrs - inhaled bronchodilators - O2 to keep Spo2 >90% - CT chest noncontrast - DVT prophylaxis Thank you for this consult Juan Luis Holliday MD
[2018-09-06] MEDS: methylPREDNISolone NA SUCC 40 MG/1 ML VIAL IVPUSH SCH (18:00)
--- NOTE | 2018-09-06 18:41 | CON.PSY ---
Psychiatry Consult Chief Complaint: 63 year old Male with a history of Schizophrenia, chronic, lives at an Adult Home. Admitted with AMS, staff repport that its been clearing up. Patient is alert and able respond to questions. not displaying any acute suicidal behaviour. Wants to go abck to home. He even knows what meds he has been taking ie Clozaril. - Previous Psychiatric Treatment Outpatient: Less than 6 mos ago Inpatient: 2 or more prior admissions - Previous Substance Abuse Treatment Outpatient: None Inpatient: None - Reason for Previous Treatment Reason for Previous Treatment: Psychotic Episode - Current Medications Current Medications: Active Medications Acetaminophen (Tylenol -) 650 mg PO Q4H PRN PRN Reason: FEVER Last Admin: 09/05/18 17:26 Dose: 650 mg Albuterol Sulfate (Ventolin 0.083% Nebulizer Soln -) 1 amp NEB Q6H PRN PRN Reason: SHORT OF BREATH/WHEEZING Albuterol/Ipratropium (Duoneb -) 1 amp NEB RQID [facility] Clozapine (Clozaril -) 200 mg PO TID [facility] Last Admin: 09/06/18 15:01 Dose: 200 mg Finasteride (Proscar -) 5 mg PO DAILY [facility] Last Admin: 09/06/18 10:12 Dose: 5 mg Heparin Sodium (Porcine) (Heparin -) 5,000 unit SQ BID [facility] Last Admin: 09/06/18 10:12 Dose: 5,000 unit Sodium Chloride (Normal Saline -) 1,000 mls @ 75 mls/hr IV ASDIR [facility] Last Admin: 09/06/18 18:01 Dose: Not Given Azithromycin (Zithromax 500mg Ivpb (Pre-Docked)) 500 mg in 250 mls @ 250 mls/ hr IVPB DAILY [facility] Last Admin: 09/06/18 11:33 Dose: 250 mls/hr Ceftriaxone Sodium 1 gm/ (Dextrose) 100 mls @ 200 mls/hr IVPB DAILY [facility]; Protocol Last Admin: 09/06/18 10:12 Dose: 200 mls/hr Insulin Aspart (Novolog Vial) 1 units SQ ACHS [facility]; Protocol Last Admin: 09/06/18 18:00 Dose: Not Given Methylprednisolone Sodium Succinate (Solu-Medrol -) 40 mg IVPUSH Q8H-IV [facility] Stop: 09/08/18 10:01 Last Admin: 09/06/18 18:00 Dose: 40 mg Pantoprazole Sodium (Protonix -) 40 mg PO DAILY [facility] Last Admin: 09/06/18 10:11 Dose: 40 mg Ramipril (Altace -) 5 mg PO DAILY [facility] Last Admin: 09/06/18 10:11 Dose: 5 mg Tamsulosin HCl (Flomax -) 0.4 mg PO DAILY@0830 [facility] Last Admin: 09/06/18 10:11 Dose: 0.4 mg - Allergies Allergies: Allergies Allergy/AdvReac Type Severity Reaction Status Date / Time haloperidol [From Haldol] Allergy Verified 09/04/18 13:32 mobaine Allergy Uncoded 09/04/18 13:32 stellacine Allergy Uncoded 09/04/18 13:32 - Current Living Status Usual Living Arrangement: Assisted Living - Current Mental Status Evaluation Appearance: Disheveled Attitude: Cooperative - Affect Affect: Full Range Appropriateness: Appropriate to Content - Mood Mood: Euthymic - Speech/Language Expressive: Coherent - Psychomotor Activity Psychomotor Activity: Normal - Thought Process Thought Process: Intact - Thought Content Hallucinations: Absent Delusions: Absent - Self Perception Self Perception: No Impairment - Cognition Attention: Alert Orientation: Time Memory, Immediate Recall: Intact Memory, Short Term: 2/3 Memory, Remote with Promptin/3 - Concentration Serial Sevens Intact: No Simple Calculations Intact: Yes - Abstraction Proverb Interpretation: Impaired Judgement: Intact - Insight Insight: Intact - Impulse Control Impulse Control: Good Control - Suicidal Ideation Suicidal Ideation: No - Homicidal Ideation Homicidal Ideation: No Assessment/Plan 1) continue with CLOzaril 200mg po tid. WBC 8.3. 2) Return to [facility][ home when medical;ly stable.
[2018-09-06] MEDS: ALBUTEROL SO4 2.5/IPRATROPIUM 0.5 INH SOL 3 ML VIAL.NEB. NEB SCH (19:47)
[2018-09-06] MEDS ORDERED: PT OWN MED DRAWER 7, Y5N ONE (21:39)
[2018-09-07] MEDS: methylPREDNISolone NA SUCC 40 MG/1 ML VIAL IVPUSH SCH ×3 (02:40→17:37)
[2018-09-07] MEDS: cloZAPine 100 MG TABLET PO SCH ×3 (06:58→21:54)
[2018-09-07] MEDS: INSULIN (NOVOLOG) ASPART 100 UNITS/ML 10ML VIAL SQ SCH ×4 (06:59→21:53)
[2018-09-07] MEDS: ALBUTEROL SO4 2.5/IPRATROPIUM 0.5 INH SOL 3 ML VIAL.NEB. NEB SCH ×4 (08:11→21:17)
[2018-09-07 11:15] LABS: HEMATOCRIT 28.9 % (35.4-49); HEMOGLOBIN 10.1 GM/dL (11.7-16.9); MCH 29.4 pg (25.7-33.7); MCHC 34.9 g/dl (32.0-35.9); MEAN CELL VOLUME 84.1 fl (80-96); PLATELET COUNT 390 K/MM3 (134-434); RBC 3.43 M/mm3 (4.00-5.60); RDW 14.9 % (11.9-15.9); WHITE BLOOD COUNT 9.7 K/mm3 (4.0-10.0)
[2018-09-07] MEDS ORDERED: cefTRIAXone SODIUM 1 GM VIAL ONE (11:36)
[2018-09-07] MEDS ORDERED: DEXTROSE 5%-WATER 100 ML IVPB ONE (11:36)
[2018-09-07 11:37] LABS: ANION GAP 9 MMOL/L (8-16); BLOOD UREA NITROGEN 15 mg/dL (7-18); CALCIUM 9.5 mg/dL (8.5-10.1); CHLORIDE 110 mmol/L (98-107); CO2 22 mmol/L (21-32); CREATININE 0.7 mg/dL (0.55-1.3); GLUCOSE,RANDOM 190 mg/dL (74-106); SODIUM 140 mmol/L (136-145)
[2018-09-07] MEDS: RAMIPRIL 5 MG CAPSULE (FP) PO SCH (11:46)
[2018-09-07] MEDS: HEPARIN NA (PORCINE) 5,000 UNITS/ML 1ML VIAL SQ SCH ×2 (11:46→21:53)
[2018-09-07] MEDS: TAMSULOSIN HCL 0.4 MG CAP PO SCH (11:46)
[2018-09-07] MEDS: PANTOPRAZOLE 40 MG TABLET (FP) PO SCH (11:46)
[2018-09-07] MEDS: AZITHROMYCIN IVPB 500 MG/250 ML BAG IVPB SCH (11:47)
[2018-09-07] MEDS: FINASTERIDE 5 MG TABLET (FP) PO SCH (11:47)
[2018-09-07] MEDS: CEFTRIAXONE 1 GM in DEXTROSE 5%-WATER 100 ML IVPB SCH (11:47)
--- NOTE | 2018-09-07 13:57 | DS ---
Physical Examination Vital Signs: Vital Signs Temperature 97.6 F 09/07/18 06:00 Pulse Rate 66 09/07/18 06:00 Respiratory Rate 20 09/07/18 06:00 Blood Pressure 137/64 09/07/18 06:00 O2 Sat by Pulse Oximetry (%) 98 09/06/18 21:00 Findings/Remarks: AWAKE FEELING BETTER CA BE DC TO [facility] AND COMPLETE PO ABX Constitutional: Yes: Mild Distress Eyes: Yes: WNL HENT: Yes: WNL Neck: Yes: WNL Cardiovascular: Yes: WNL Respiratory: Yes: On Nasal O2 Gastrointestinal: Yes: WNL Musculoskeletal: Yes: Muscle Weakness Extremities: Yes: WNL Edema: No Peripheral Pulses WNL: Yes Integumentary: Yes: WNL Wound/Incision: Yes: Clean/Dry Neurological: Yes: Pre-Existing Deficit ...Motor Strength: LLE, RLE Psychiatric: Yes: Other Labs: CBC, BMP 09/07/18 10:57 09/07/18 10:57 Discharge Summary Reason For Visit: ALTERED MENTAL STATUS; PNEUMONIA Current Active Problems Altered mental status (Acute) Hyponatremia (Acute) Pneumonia (Acute) Schizophrenia (Acute) Procedures: Principal: CT CHEST Hospital Course: IV ABX NEBS GIVEN, FEELING BETTER WILL NEED SNF Condition: Improved - Instructions Diet, Activity, Other Instructions: COMPLETE ANTIBIOTICS AT REHAB CHECK WITH PSYCHOTHERAPY GROUP Referrals: Juan Luis Rm [Primary Care Provider] - Disposition: [facility] - Home Medications Comprehensive Discharge Medication List: Ambulatory Orders Albuterol Sulfate Inhaler - [Ventolin Hfa Inhaler -] 1 - 2 inh PO Q4H 09/04/18 Citalopram Hydrobromide [Citalopram HBr] 20 mg PO DAILY 09/04/18 Clozapine 200 mg PO TID 09/04/18 Cyclobenzaprine HCl 10 mg PO TID 09/04/18 Finasteride 5 mg PO DAILY 09/04/18 Hydroxyzine HCl 50 mg PO DAILY 09/04/18 Linagliptin [Tradjenta] 5 mg PO DAILY 09/04/18 Meloxicam 15 mg PO DAILY 09/04/18 Ramipril [Altace] 5 mg PO DAILY 09/04/18 Tamsulosin HCl 0.4 mg PO DAILY 09/04/18 metFORMIN HCL [Metformin HCl] 500 mg PO DAILY 09/04/18
--- NOTE | 2018-09-07 14:15 | PN ---
Progress Note, Physician History of Present Illness: PULMONARY ALERT,LESS CONGESTED.CHEST CT LLL CONSOLIDAION - Current Medication List Current Medications: Active Medications Acetaminophen (Tylenol -) 650 mg PO Q4H PRN PRN Reason: FEVER Last Admin: 09/05/18 17:26 Dose: 650 mg Albuterol Sulfate (Ventolin 0.083% Nebulizer Soln -) 1 amp NEB Q6H PRN PRN Reason: SHORT OF BREATH/WHEEZING Albuterol/Ipratropium (Duoneb -) 1 amp NEB RQID [facility] Last Admin: 09/07/18 11:36 Dose: 1 amp Clozapine (Clozaril -) 200 mg PO TID [facility] Last Admin: 09/07/18 06:58 Dose: 200 mg Finasteride (Proscar -) 5 mg PO DAILY [facility] Last Admin: 09/07/18 11:47 Dose: 5 mg Heparin Sodium (Porcine) (Heparin -) 5,000 unit SQ BID [facility] Last Admin: 09/07/18 11:46 Dose: 5,000 unit Sodium Chloride (Normal Saline -) 1,000 mls @ 75 mls/hr IV ASDIR [facility] Last Admin: 09/06/18 18:01 Dose: Not Given Azithromycin (Zithromax 500mg Ivpb (Pre-Docked)) 500 mg in 250 mls @ 250 mls/ hr IVPB DAILY [facility] Last Admin: 09/07/18 11:47 Dose: 250 mls/hr Ceftriaxone Sodium 1 gm/ (Dextrose) 100 mls @ 200 mls/hr IVPB DAILY [facility]; Protocol Last Admin: 09/07/18 11:47 Dose: 200 mls/hr Insulin Aspart (Novolog Vial) 1 units SQ ACHS [facility]; Protocol Last Admin: 09/07/18 13:52 Dose: Not Given Methylprednisolone Sodium Succinate (Solu-Medrol -) 40 mg IVPUSH Q8H-IV [facility] Stop: 09/08/18 10:01 Last Admin: 09/07/18 11:45 Dose: 40 mg Pantoprazole Sodium (Protonix -) 40 mg PO DAILY [facility] Last Admin: 09/07/18 11:46 Dose: 40 mg Ramipril (Altace -) 5 mg PO DAILY [facility] Last Admin: 09/07/18 11:46 Dose: 5 mg Tamsulosin HCl (Flomax -) 0.4 mg PO DAILY@0830 [facility] Last Admin: 12/14/18 11:46 Dose: 0.4 mg - Objective Vital Signs: Vital Signs Temperature 97.6 F 09/07/18 06:00 Pulse Rate 66 09/07/18 06:00 Respiratory Rate 20 09/07/18 06:00 Blood Pressure 137/64 09/07/18 06:00 O2 Sat by Pulse Oximetry (%) 98 09/06/18 21:00 Constitutional: Yes: Calm, Thin Eyes: Yes: WNL HENT: Yes: WNL Neck: Yes: WNL Cardiovascular: Yes: Regular Rate and Rhythm, S1, S2 Respiratory: Yes: Rales (CRACKLES ON LEFT 1/3 UP) Gastrointestinal: Yes: Normal Bowel Sounds, Soft Extremities: Yes: WNL Edema: No Labs: CBC, BMP 09/07/18 10:57 09/07/18 10:57 INR, PTT INR 1.14 (0.83-1.09) H 09/04/18 13:45 - ....Imaging Cat Scan: Report Reviewed, Image Reviewed Assessment/Plan Problem List - Problems (1) Pneumonia Code(s): J18.9 - PNEUMONIA, UNSPECIFIED ORGANISM (2) Hyponatremia Code(s): E87.1 - HYPO-OSMOLALITY AND HYPONATREMIA (3) Schizophrenia Code(s): F20.9 - SCHIZOPHRENIA, UNSPECIFIED Assessment/Plan Pneumonia LLL Acute COPD Exacerbation improving Hyponatremia corrected HTN Hyperlipidemia Smoker Pulmonary nodule - continue antibiotics - short course of steroids x 48hrs - inhaled bronchodilators - O2 to keep Spo2 >90% - DVT prophylaxis - f/u chest ct 6-8 weeks ton confirm resolution LLL consolidation - smoking cessation - outpatient f/u pulmonary nodule DR LOPEZ
[2018-09-07] MEDS: SODIUM CHLORIDE 1,000 ML IV SCH (17:37)
[2018-09-08] MEDS: methylPREDNISolone NA SUCC 40 MG/1 ML VIAL IVPUSH SCH ×2 (01:49→10:52)
[2018-09-08] MEDS: INSULIN (NOVOLOG) ASPART 100 UNITS/ML 10ML VIAL SQ SCH ×4 (06:38→22:44)
[2018-09-08] MEDS: cloZAPine 100 MG TABLET PO SCH ×3 (06:38→22:41)
[2018-09-08] MEDS: SODIUM CHLORIDE 1,000 ML IV SCH ×2 (06:39→19:51)
[2018-09-08] MEDS: ALBUTEROL SO4 2.5/IPRATROPIUM 0.5 INH SOL 3 ML VIAL.NEB. NEB SCH ×4 (07:30→21:00)
--- NOTE | 2018-09-08 10:29 | PN ---
Progress Note, Physician History of Present Illness: pulmonary alert,no distress,-sob,less cough - Current Medication List Current Medications: Active Medications Acetaminophen (Tylenol -) 650 mg PO Q4H PRN PRN Reason: FEVER Last Admin: 09/05/18 17:26 Dose: 650 mg Albuterol Sulfate (Ventolin 0.083% Nebulizer Soln -) 1 amp NEB Q6H PRN PRN Reason: SHORT OF BREATH/WHEEZING Albuterol/Ipratropium (Duoneb -) 1 amp NEB RQID [facility] Last Admin: 09/08/18 07:30 Dose: 1 amp Clozapine (Clozaril -) 200 mg PO TID [facility] Last Admin: 09/08/18 06:38 Dose: 200 mg Finasteride (Proscar -) 5 mg PO DAILY [facility] Last Admin: 09/07/18 11:47 Dose: 5 mg Heparin Sodium (Porcine) (Heparin -) 5,000 unit SQ BID [facility] Last Admin: 09/07/18 21:53 Dose: 5,000 unit Sodium Chloride (Normal Saline -) 1,000 mls @ 75 mls/hr IV ASDIR [facility] Last Admin: 09/08/18 06:39 Dose: 75 mls/hr Azithromycin (Zithromax 500mg Ivpb (Pre-Docked)) 500 mg in 250 mls @ 250 mls/ hr IVPB DAILY [facility] Last Admin: 09/07/18 11:47 Dose: 250 mls/hr Ceftriaxone Sodium 1 gm/ (Dextrose) 100 mls @ 200 mls/hr IVPB DAILY [facility]; Protocol Last Admin: 09/07/18 11:47 Dose: 200 mls/hr Insulin Aspart (Novolog Vial) 1 units SQ ACHS [facility]; Protocol Last Admin: 09/08/18 06:38 Dose: 2 unit Pantoprazole Sodium (Protonix -) 40 mg PO DAILY [facility] Last Admin: 09/07/18 11:46 Dose: 40 mg Ramipril (Altace -) 5 mg PO DAILY [facility] Last Admin: 09/07/18 11:46 Dose: 5 mg Tamsulosin HCl (Flomax -) 0.4 mg PO DAILY@0830 [facility] Last Admin: 09/07/18 11:46 Dose: 0.4 mg - Objective Vital Signs: Vital Signs Temperature 98.2 F 09/08/18 06:00 Pulse Rate 74 09/08/18 06:00 Respiratory Rate 20 09/08/18 06:00 Blood Pressure 150/64 09/08/18 06:00 O2 Sat by Pulse Oximetry (%) 98 09/07/18 21:00 Constitutional: Yes: Calm, Thin Eyes: Yes: WNL HENT: Yes: WNL Neck: Yes: WNL Cardiovascular: Yes: Regular Rate and Rhythm, S1, S2 Respiratory: Yes: Rales (crackles left base) Gastrointestinal: Yes: Normal Bowel Sounds, Soft Extremities: Yes: WNL Edema: No Assessment/Plan Problem List - Problems (1) Pneumonia Code(s): J18.9 - PNEUMONIA, UNSPECIFIED ORGANISM (2) Hyponatremia Code(s): E87.1 - HYPO-OSMOLALITY AND HYPONATREMIA (3) Schizophrenia Code(s): F20.9 - SCHIZOPHRENIA, UNSPECIFIED Assessment/Plan Pneumonia LLL Acute COPD Exacerbation improving Hyponatremia corrected HTN Hyperlipidemia Smoker Pulmonary nodule - antibiotics - medrol - inhaled bronchodilators - O2 to keep Spo2 >90% - DVT prophylaxis - f/u chest ct 6-8 weeks ton confirm resolution LLL consolidation - smoking cessation - outpatient f/u pulmonary nodule DR LOPEZ
[2018-09-08] MEDS ORDERED: cefTRIAXone SODIUM 1 GM VIAL ONE (10:45)
[2018-09-08] MEDS ORDERED: DEXTROSE 5%-WATER 100 ML IVPB ONE (10:45)
[2018-09-08] MEDS: TAMSULOSIN HCL 0.4 MG CAP PO SCH (10:52)
[2018-09-08] MEDS: FINASTERIDE 5 MG TABLET (FP) PO SCH (10:53)
[2018-09-08] MEDS: PANTOPRAZOLE 40 MG TABLET (FP) PO SCH (10:53)
[2018-09-08] MEDS: RAMIPRIL 5 MG CAPSULE (FP) PO SCH (10:53)
[2018-09-08] MEDS: CEFTRIAXONE 1 GM in DEXTROSE 5%-WATER 100 ML IVPB SCH (10:53)
[2018-09-08] MEDS: AZITHROMYCIN IVPB 500 MG/250 ML BAG IVPB SCH (10:54)
[2018-09-08] MEDS: HEPARIN NA (PORCINE) 5,000 UNITS/ML 1ML VIAL SQ SCH ×2 (10:54→22:41)
--- NOTE | 2018-09-08 11:55 | PN ---
Progress Note, Physician Chief Complaint: Pneumonia LLL Acute COPD Exacerbation improving History of Present Illness: NAD awaiting bed [facility] - Current Medication List Current Medications: Active Medications Acetaminophen (Tylenol -) 650 mg PO Q4H PRN PRN Reason: FEVER Last Admin: 09/05/18 17:26 Dose: 650 mg Albuterol Sulfate (Ventolin 0.083% Nebulizer Soln -) 1 amp NEB Q6H PRN PRN Reason: SHORT OF BREATH/WHEEZING Albuterol/Ipratropium (Duoneb -) 1 amp NEB RQID [facility] Last Admin: 09/08/18 11:31 Dose: 1 amp Clozapine (Clozaril -) 200 mg PO TID [facility] Last Admin: 09/08/18 06:38 Dose: 200 mg Finasteride (Proscar -) 5 mg PO DAILY [facility] Last Admin: 09/08/18 10:53 Dose: 5 mg Heparin Sodium (Porcine) (Heparin -) 5,000 unit SQ BID [facility] Last Admin: 09/08/18 10:54 Dose: 5,000 unit Sodium Chloride (Normal Saline -) 1,000 mls @ 75 mls/hr IV ASDIR [facility] Last Admin: 09/08/18 06:39 Dose: 75 mls/hr Azithromycin (Zithromax 500mg Ivpb (Pre-Docked)) 500 mg in 250 mls @ 250 mls/ hr IVPB DAILY [facility] Last Admin: 09/08/18 10:54 Dose: 250 mls/hr Ceftriaxone Sodium 1 gm/ (Dextrose) 100 mls @ 200 mls/hr IVPB DAILY [facility]; Protocol Last Admin: 09/08/18 10:53 Dose: 200 mls/hr Insulin Aspart (Novolog Vial) 1 units SQ ACHS [facility]; Protocol Last Admin: 09/08/18 06:38 Dose: 2 unit Pantoprazole Sodium (Protonix -) 40 mg PO DAILY [facility] Last Admin: 09/08/18 10:53 Dose: 40 mg Ramipril (Altace -) 5 mg PO DAILY [facility] Last Admin: 09/08/18 10:53 Dose: 5 mg Tamsulosin HCl (Flomax -) 0.4 mg PO DAILY@0830 [facility] Last Admin: 09/08/18 10:52 Dose: 0.4 mg - Objective Vital Signs: Vital Signs Temperature 98.2 F 09/08/18 06:00 Pulse Rate 74 09/08/18 06:00 Respiratory Rate 20 09/08/18 06:00 Blood Pressure 150/64 09/08/18 06:00 O2 Sat by Pulse Oximetry (%) 98 09/07/18 21:00 Constitutional: Yes: Well Nourished, No Distress, Calm Cardiovascular: Yes: Regular Rate and Rhythm Respiratory: Yes: Regular Gastrointestinal: Yes: Normal Bowel Sounds, Soft Musculoskeletal: Yes: WNL Extremities: Yes: WNL Edema: No Peripheral Pulses WNL: Yes Neurological: Yes: Alert, Oriented Psychiatric: Yes: Alert, Oriented Labs: CBC, BMP 09/07/18 10:57 09/07/18 10:57 INR, PTT INR 1.14 (0.83-1.09) H 09/04/18 13:45 Problem List - Problems (1) Altered mental status Assessment/Plan: -improved -2/2 to metabolic encephalopathy Code(s): R41.82 - ALTERED MENTAL STATUS, UNSPECIFIED (2) Hyponatremia Assessment/Plan: -resolved Code(s): E87.1 - HYPO-OSMOLALITY AND HYPONATREMIA (3) Pneumonia Assessment/Plan: -will be discharged on PO abx to complete at [facility] Code(s): J18.9 - PNEUMONIA, UNSPECIFIED ORGANISM (4) Schizophrenia Assessment/Plan: -seen by psychiatry -Clozapine Code(s): F20.9 - SCHIZOPHRENIA, UNSPECIFIED Assessment/Plan see problem list
[2018-09-08] MEDS ORDERED: PT OWN MED DRAWER 7, Y5N ONE (22:11)
[2018-09-09] MEDS ORDERED: PT OWN MED DRAWER 7, Y5N ONE ×3 (05:50→21:19)
[2018-09-09] MEDS: cloZAPine 100 MG TABLET PO SCH ×3 (05:54→22:02)
[2018-09-09] MEDS: INSULIN (NOVOLOG) ASPART 100 UNITS/ML 10ML VIAL SQ SCH ×4 (06:13→22:05)
[2018-09-09] MEDS: ALBUTEROL SO4 2.5/IPRATROPIUM 0.5 INH SOL 3 ML VIAL.NEB. NEB SCH ×4 (07:25→20:45)
[2018-09-09] MEDS ORDERED: cefTRIAXone SODIUM 1 GM VIAL ONE (09:11)
[2018-09-09] MEDS ORDERED: DEXTROSE 5%-WATER 100 ML IVPB ONE (09:11)
[2018-09-09] MEDS: AZITHROMYCIN IVPB 500 MG/250 ML BAG IVPB SCH (09:20)
[2018-09-09] MEDS: PANTOPRAZOLE 40 MG TABLET (FP) PO SCH (09:20)
[2018-09-09] MEDS: CEFTRIAXONE 1 GM in DEXTROSE 5%-WATER 100 ML IVPB SCH (09:20)
[2018-09-09] MEDS: FINASTERIDE 5 MG TABLET (FP) PO SCH (09:20)
[2018-09-09] MEDS: HEPARIN NA (PORCINE) 5,000 UNITS/ML 1ML VIAL SQ SCH ×2 (09:21→22:02)
[2018-09-09] MEDS: RAMIPRIL 5 MG CAPSULE (FP) PO SCH (09:21)
[2018-09-09] MEDS: TAMSULOSIN HCL 0.4 MG CAP PO SCH (09:21)
--- NOTE | 2018-09-09 10:10 | PN ---
Progress Note, Physician Chief Complaint: Pneumonia LLL Acute COPD Exacerbation improving History of Present Illness: NAD awaiting bed [facility] - Current Medication List Current Medications: Active Medications Acetaminophen (Tylenol -) 650 mg PO Q4H PRN PRN Reason: FEVER Last Admin: 09/05/18 17:26 Dose: 650 mg Albuterol Sulfate (Ventolin 0.083% Nebulizer Soln -) 1 amp NEB Q6H PRN PRN Reason: SHORT OF BREATH/WHEEZING Albuterol/Ipratropium (Duoneb -) 1 amp NEB RQID [facility] Last Admin: 09/09/18 07:25 Dose: 1 amp Clozapine (Clozaril -) 200 mg PO TID [facility] Last Admin: 09/09/18 05:54 Dose: 200 mg Finasteride (Proscar -) 5 mg PO DAILY [facility] Last Admin: 09/09/18 09:20 Dose: 5 mg Heparin Sodium (Porcine) (Heparin -) 5,000 unit SQ BID [facility] Last Admin: 09/09/18 09:21 Dose: 5,000 unit Sodium Chloride (Normal Saline -) 1,000 mls @ 75 mls/hr IV ASDIR [facility] Last Admin: 09/08/18 19:51 Dose: Not Given Azithromycin (Zithromax 500mg Ivpb (Pre-Docked)) 500 mg in 250 mls @ 250 mls/ hr IVPB DAILY [facility] Last Admin: 09/09/18 09:20 Dose: 250 mls/hr Ceftriaxone Sodium 1 gm/ (Dextrose) 100 mls @ 200 mls/hr IVPB DAILY [facility]; Protocol Last Admin: 09/09/18 09:20 Dose: 200 mls/hr Insulin Aspart (Novolog Vial) 1 units SQ ACHS [facility]; Protocol Last Admin: 09/09/18 06:13 Dose: Not Given Pantoprazole Sodium (Protonix -) 40 mg PO DAILY [facility] Last Admin: 09/09/18 09:20 Dose: 40 mg Ramipril (Altace -) 5 mg PO DAILY [facility] Last Admin: 09/09/18 09:21 Dose: 5 mg Tamsulosin HCl (Flomax -) 0.4 mg PO DAILY@0830 [facility] Last Admin: 09/09/18 09:21 Dose: 0.4 mg - Objective Vital Signs: Vital Signs Temperature 98.3 F 09/09/18 09:17 Pulse Rate 75 09/09/18 09:17 Respiratory Rate 19 09/09/18 09:17 Blood Pressure 135/70 09/09/18 09:17 O2 Sat by Pulse Oximetry (%) 98 09/08/18 21:00 Constitutional: Yes: No Distress, Calm, Cachectic Cardiovascular: Yes: Regular Rate and Rhythm Respiratory: Yes: Regular, Rales (BLL) Gastrointestinal: Yes: Normal Bowel Sounds, Soft Genitourinary: Yes: WNL Musculoskeletal: Yes: Muscle Weakness Extremities: Yes: WNL Edema: No Peripheral Pulses WNL: Yes Neurological: Yes: Alert, Oriented Psychiatric: Yes: Alert, Oriented Labs: CBC, BMP 09/07/18 10:57 09/07/18 10:57 INR, PTT INR 1.14 (0.83-1.09) H 09/04/18 13:45 Problem List - Problems (1) Altered mental status Assessment/Plan: -improved -2/2 to metabolic encephalopathy Code(s): R41.82 - ALTERED MENTAL STATUS, UNSPECIFIED (2) Hyponatremia Assessment/Plan: -resolved Code(s): E87.1 - HYPO-OSMOLALITY AND HYPONATREMIA (3) Pneumonia Assessment/Plan: -will be discharged on PO abx to complete at [facility] Code(s): J18.9 - PNEUMONIA, UNSPECIFIED ORGANISM (4) Schizophrenia Assessment/Plan: -seen by psychiatry -Clozapine Code(s): F20.9 - SCHIZOPHRENIA, UNSPECIFIED Assessment/Plan see problem list
[2018-09-09 11:42] LABS: BASO % 0.6 % (0-2.0); HEMATOCRIT 29.7 % (35.4-49); LYMPH % 21.2 % (8-40); MCH 28.9 pg (25.7-33.7); MCHC 33.8 g/dl (32.0-35.9); MEAN CELL VOLUME 85.3 fl (80-96); MEAN PLT VOLUME 7.3 fl (7.5-11.1); NEUT % 69.2 % (42.8-82.8); PLATELET COUNT 490 K/MM3 (134-434); RBC 3.48 M/mm3 (4.00-5.60); RDW 15.1 % (11.9-15.9); WHITE BLOOD COUNT 12.4 K/mm3 (4.0-10.0)
[2018-09-09 12:23] LABS: ALBUMIN 2.1 g/dl (3.4-5.0); ALK PHOS 59 U/L (45-117); ANION GAP 7 MMOL/L (8-16); BILIRUBIN,TOTAL 0.1 mg/dL (0.2-1); BLOOD UREA NITROGEN 16 mg/dL (7-18); CHLORIDE 112 mmol/L (98-107); CO2 24 mmol/L (21-32); CREATININE 0.7 mg/dL (0.55-1.3); GLUCOSE,RANDOM 117 mg/dL (74-106); POTASSIUM 3.6 mmol/L (3.5-5.1); SGOT/AST 15 U/L (15-37); SGPT/ALT 16 U/L (13-61); SODIUM 143 mmol/L (136-145); TOT PROT 5.9 g/dl (6.4-8.2)
[2018-09-09 12:34] LABS: ANISOCYTOSIS 1+; MACROCYTOSIS 1+; PLATELET ESTIMATE NORMAL
--- NOTE | 2018-09-09 13:13 | PN ---
Progress Note, Physician History of Present Illness: pulmonary alert,no distress,-congestion - Current Medication List Current Medications: Active Medications Acetaminophen (Tylenol -) 650 mg PO Q4H PRN PRN Reason: FEVER Last Admin: 09/05/18 17:26 Dose: 650 mg Albuterol Sulfate (Ventolin 0.083% Nebulizer Soln -) 1 amp NEB Q6H PRN PRN Reason: SHORT OF BREATH/WHEEZING Albuterol/Ipratropium (Duoneb -) 1 amp NEB RQID [facility] Last Admin: 09/09/18 11:08 Dose: 1 amp Clozapine (Clozaril -) 200 mg PO TID [facility] Last Admin: 09/09/18 05:54 Dose: 200 mg Finasteride (Proscar -) 5 mg PO DAILY [facility] Last Admin: 09/09/18 09:20 Dose: 5 mg Heparin Sodium (Porcine) (Heparin -) 5,000 unit SQ BID [facility] Last Admin: 09/09/18 09:21 Dose: 5,000 unit Sodium Chloride (Normal Saline -) 1,000 mls @ 75 mls/hr IV ASDIR [facility] Last Admin: 18 19:51 Dose: Not Given Azithromycin (Zithromax 500mg Ivpb (Pre-Docked)) 500 mg in 250 mls @ 250 mls/ hr IVPB DAILY [facility] Last Admin: 09/09/18 09:20 Dose: 250 mls/hr Ceftriaxone Sodium 1 gm/ (Dextrose) 100 mls @ 200 mls/hr IVPB DAILY [facility]; Protocol Last Admin: 09/09/18 09:20 Dose: 200 mls/hr Insulin Aspart (Novolog Vial) 1 units SQ ACHS [facility]; Protocol Last Admin: 09/09/18 12:10 Dose: Not Given Pantoprazole Sodium (Protonix -) 40 mg PO DAILY [facility] Last Admin: 09/09/18 09:20 Dose: 40 mg Ramipril (Altace -) 5 mg PO DAILY [facility] Last Admin: 09/09/18 09:21 Dose: 5 mg Tamsulosin HCl (Flomax -) 0.4 mg PO DAILY@0830 [facility] Last Admin: 09/09/18 09:21 Dose: 0.4 mg - Objective Vital Signs: Vital Signs Temperature 98.3 F 09/09/18 09:17 Pulse Rate 75 09/09/18 09:17 Respiratory Rate 19 09/09/18 09:17 Blood Pressure 135/70 09/09/18 09:17 O2 Sat by Pulse Oximetry (%) 98 09/08/18 21:00 Constitutional: Yes: Calm, Thin Eyes: Yes: WNL HENT: Yes: WNL Neck: Yes: WNL Cardiovascular: Yes: Regular Rate and Rhythm, S1, S2 Respiratory: Yes: Rales (crackles left base) Gastrointestinal: Yes: Normal Bowel Sounds, Soft Extremities: Yes: WNL Edema: No Labs: CBC, BMP 09/09/18 11:05 09/09/18 11:05 INR, PTT INR 1.14 (0.83-1.09) H 09/04/18 13:45 Assessment/Plan Problem List - Problems (1) Pneumonia Code(s): J18.9 - PNEUMONIA, UNSPECIFIED ORGANISM (2) Hyponatremia Code(s): E87.1 - HYPO-OSMOLALITY AND HYPONATREMIA (3) Schizophrenia Code(s): F20.9 - SCHIZOPHRENIA, UNSPECIFIED Assessment/Plan Pneumonia LLL Acute COPD Exacerbation improving Hyponatremia corrected HTN Hyperlipidemia Smoker Pulmonary nodule - antibiotics - inhaled bronchodilators - O2 to keep Spo2 >90% - DVT prophylaxis - f/u chest ct 6-8 weeks ton confirm resolution LLL consolidation - smoking cessation - outpatient f/u pulmonary nodule DR LOPEZ
[2018-09-10] MEDS: cloZAPine 100 MG TABLET PO SCH ×3 (06:13→22:40)
[2018-09-10] MEDS: INSULIN (NOVOLOG) ASPART 100 UNITS/ML 10ML VIAL SQ SCH ×4 (06:14→22:40)
[2018-09-10] MEDS: ALBUTEROL SO4 2.5/IPRATROPIUM 0.5 INH SOL 3 ML VIAL.NEB. NEB SCH ×4 (07:20→20:21)
--- NOTE | 2018-09-10 09:03 | PN ---
Progress Note, Physician - Current Medication List Current Medications: Active Medications Acetaminophen (Tylenol -) 650 mg PO Q4H PRN PRN Reason: FEVER Last Admin: 09/05/18 17:26 Dose: 650 mg Albuterol/Ipratropium (Duoneb -) 1 amp NEB RQID [facility] Last Admin: 09/10/18 07:20 Dose: 1 amp Clozapine (Clozaril -) 200 mg PO TID [facility] Last Admin: 09/10/18 06:13 Dose: 200 mg Finasteride (Proscar -) 5 mg PO DAILY [facility] Last Admin: 09/09/18 09:20 Dose: 5 mg Heparin Sodium (Porcine) (Heparin -) 5,000 unit SQ BID [facility] Last Admin: 09/09/18 22:02 Dose: 5,000 unit Sodium Chloride (Normal Saline -) 1,000 mls @ 75 mls/hr IV ASDIR [facility] Last Admin: 09/08/18 19:51 Dose: Not Given Azithromycin (Zithromax 500mg Ivpb (Pre-Docked)) 500 mg in 250 mls @ 250 mls/ hr IVPB DAILY [facility] Last Admin: 09/09/18 09:20 Dose: 250 mls/hr Ceftriaxone Sodium 1 gm/ (Dextrose) 100 mls @ 200 mls/hr IVPB DAILY [facility]; Protocol Last Admin: 09/09/18 09:20 Dose: 200 mls/hr Insulin Aspart (Novolog Vial) 1 units SQ ACHS [facility]; Protocol Last Admin: 09/10/18 06:14 Dose: Not Given Pantoprazole Sodium (Protonix -) 40 mg PO DAILY [facility] Last Admin: 09/09/18 09:20 Dose: 40 mg Ramipril (Altace -) 5 mg PO DAILY [facility] Last Admin: 09/09/18 09:21 Dose: 5 mg Tamsulosin HCl (Flomax -) 0.4 mg PO DAILY@0830 [facility] Last Admin: 09/09/18 09:21 Dose: 0.4 mg - Objective Vital Signs: Vital Signs Temperature 98.4 F 09/10/18 02:00 Pulse Rate 68 09/10/18 02:00 Respiratory Rate 18 09/10/18 02:00 Blood Pressure 147/70 09/10/18 02:00 O2 Sat by Pulse Oximetry (%) 98 09/09/18 09:00 Cardiovascular: Yes: S1, S2 Respiratory: Yes: Regular, CTA Bilaterally Gastrointestinal: Yes: Normal Bowel Sounds, Soft Labs: CBC, BMP 09/09/18 11:05 09/09/18 11:05 INR, PTT INR 1.14 (0.83-1.09) H 09/04/18 13:45 Assessment/Plan - Problems (1) Altered mental status Assessment/Plan: -improved -2/2 to metabolic encephalopathy Code(s): R41.82 - ALTERED MENTAL STATUS, UNSPECIFIED (2) Hyponatremia Assessment/Plan: -resolved Code(s): E87.1 - HYPO-OSMOLALITY AND HYPONATREMIA (3) Pneumonia Assessment/Plan: -will be discharged on PO abx to complete at [place] Code(s): J18.9 - PNEUMONIA, UNSPECIFIED ORGANISM (4) Schizophrenia Assessment/Plan: -seen by psychiatry -Clozapine Code(s): F20.9 - SCHIZOPHRENIA, UNSPECIFIED
[2018-09-10] MEDS: TAMSULOSIN HCL 0.4 MG CAP PO SCH (09:54)
[2018-09-10] MEDS ORDERED: cefTRIAXone SODIUM 1 GM VIAL ONE (10:49)
[2018-09-10] MEDS ORDERED: DEXTROSE 5%-WATER 100 ML IVPB ONE (10:49)
[2018-09-10] MEDS: RAMIPRIL 5 MG CAPSULE (FP) PO SCH (10:56)
[2018-09-10] MEDS: PANTOPRAZOLE 40 MG TABLET (FP) PO SCH (10:56)
[2018-09-10] MEDS: CEFTRIAXONE 1 GM in DEXTROSE 5%-WATER 100 ML IVPB SCH (10:56)
[2018-09-10] MEDS: FINASTERIDE 5 MG TABLET (FP) PO SCH (10:57)
[2018-09-10] MEDS: HEPARIN NA (PORCINE) 5,000 UNITS/ML 1ML VIAL SQ SCH ×2 (10:59→22:40)
[2018-09-10 11:02] LABS: BASO % 2.1 % (0-2.0); EOS % 0.1 % (0-4.5); HEMATOCRIT 29.4 % (35.4-49); HEMOGLOBIN 9.4 GM/dL (11.7-16.9); LYMPH % 12.8 % (8-40); MCH 27.4 pg (25.7-33.7); MCHC 32.1 g/dl (32.0-35.9); MEAN CELL VOLUME 85.3 fl (80-96); MEAN PLT VOLUME 7.1 fl (7.5-11.1); MONO % 7.4 % (3.8-10.2); NEUT % 77.6 % (42.8-82.8); PLATELET COUNT 458 K/MM3 (134-434); RBC 3.44 M/mm3 (4.00-5.60); WHITE BLOOD COUNT 12.4 K/mm3 (4.0-10.0)
[2018-09-10 11:21] LABS: ALBUMIN 2.2 g/dl (3.4-5.0); ALK PHOS 58 U/L (45-117); ANION GAP 5 MMOL/L (8-16); BILIRUBIN,TOTAL 0.2 mg/dL (0.2-1); BLOOD UREA NITROGEN 14 mg/dL (7-18); CHLORIDE 108 mmol/L (98-107); CO2 28 mmol/L (21-32); CREATININE 0.6 mg/dL (0.55-1.3); GLUCOSE,RANDOM 121 mg/dL (74-106); POTASSIUM 3.8 mmol/L (3.5-5.1); SGOT/AST 13 U/L (15-37); SGPT/ALT 17 U/L (13-61); SODIUM 141 mmol/L (136-145); TOT PROT 5.9 g/dl (6.4-8.2)
[2018-09-10] MEDS: AZITHROMYCIN IVPB 500 MG/250 ML BAG IVPB SCH (11:58)
--- NOTE | 2018-09-10 14:22 | PN ---
Progress Note (short form) - Note Progress Note: PULMONARY Denies shortness of breath. +nonproductive cough. No fevers. Vital Signs Period Temp Pulse Resp BP Sys/Pacheco Pulse Ox Last 24 Hr 98.0 F-98.4 F 68-70 18-20 137-147/66-70 Gen: NAD at rest Heart: RRR Lung: decreased breath sounds at the bases Abd: soft, nontender Ext: no edema CBC, BMP 09/10/18 10:30 09/10/18 10:30 Active Medications Acetaminophen (Tylenol -) 650 mg PO Q4H PRN PRN Reason: FEVER Last Admin: 09/05/18 17:26 Dose: 650 mg Albuterol/Ipratropium (Duoneb -) 1 amp NEB RQID [facility] Last Admin: 09/10/18 11:10 Dose: 1 amp Clozapine (Clozaril -) 200 mg PO TID [facility] Last Admin: 09/10/18 06:13 Dose: 200 mg Finasteride (Proscar -) 5 mg PO DAILY [facility] Last Admin: 09/10/18 10:57 Dose: 5 mg Heparin Sodium (Porcine) (Heparin -) 5,000 unit SQ BID [facility] Last Admin: 09/10/18 10:59 Dose: 5,000 unit Sodium Chloride (Normal Saline -) 1,000 mls @ 75 mls/hr IV ASDIR [facility] Last Admin: 09/08/18 19:51 Dose: Not Given Azithromycin (Zithromax 500mg Ivpb (Pre-Docked)) 500 mg in 250 mls @ 250 mls/ hr IVPB DAILY [facility] Last Admin: 09/10/18 11:58 Dose: 250 mls/hr Ceftriaxone Sodium 1 gm/ (Dextrose) 100 mls @ 200 mls/hr IVPB DAILY [facility]; Protocol Last Admin: 09/10/18 10:56 Dose: 200 mls/hr Insulin Aspart (Novolog Vial) 1 units SQ ACHS [facility]; Protocol Last Admin: 09/10/18 12:09 Dose: Not Given Pantoprazole Sodium (Protonix -) 40 mg PO DAILY [facility] Last Admin: 09/10/18 10:56 Dose: 40 mg Ramipril (Altace -) 5 mg PO DAILY [facility] Last Admin: 09/10/18 10:56 Dose: 5 mg Tamsulosin HCl (Flomax -) 0.4 mg PO DAILY@0830 [facility] Last Admin: 09/10/18 09:54 Dose: 0.4 mg A/P Pneumonia Acute COPD Exacerbation improved Hyponatremia HTN Hyperlipidemia Smoker - complete antibiotics, can likely change to PO - inhaled bronchodilators - O2 to keep Spo2 >90% - outpt f/u of chest imaging to ensure resolution of infiltrate - DVT prophylaxis Problem List - Problems (1) Pneumonia Code(s): J18.9 - PNEUMONIA, UNSPECIFIED ORGANISM (2) Hyponatremia Code(s): E87.1 - HYPO-OSMOLALITY AND HYPONATREMIA (3) Schizophrenia Code(s): F20.9 - SCHIZOPHRENIA, UNSPECIFIED
[2018-09-10 14:25] LABS: ANISOCYTOSIS 1+; MACROCYTOSIS 1+; PLATELET ESTIMATE NORMAL
[2018-09-10] MEDS ORDERED: PT OWN MED DRAWER 7, Y5N ONE ×2 (14:45→17:55)
[2018-09-10] MEDS: SODIUM CHLORIDE 1,000 ML IV SCH ×2 (17:52→22:39)
[2018-09-11 04:15] LABS: SERUM IRON SATURATION 23 % (15-55); TOTAL IRON BINDING CAPACITY 227 ug/dL (250-450); UIBC 175 ug/dL (111-343)
[2018-09-11] MEDS: cloZAPine 100 MG TABLET PO SCH ×2 (06:12→14:11)
[2018-09-11] MEDS: INSULIN (NOVOLOG) ASPART 100 UNITS/ML 10ML VIAL SQ SCH ×2 (06:14→11:46)
[2018-09-11] MEDS: ALBUTEROL SO4 2.5/IPRATROPIUM 0.5 INH SOL 3 ML VIAL.NEB. NEB SCH ×2 (08:57→11:52)
[2018-09-11] MEDS ORDERED: DEXTROSE 5%-WATER 100 ML IVPB ONE (09:04)
[2018-09-11] MEDS ORDERED: cefTRIAXone SODIUM 1 GM VIAL ONE (09:04)
[2018-09-11] MEDS: TAMSULOSIN HCL 0.4 MG CAP PO SCH (09:08)
[2018-09-11] MEDS: RAMIPRIL 5 MG CAPSULE (FP) PO SCH (09:12)
[2018-09-11] MEDS: HEPARIN NA (PORCINE) 5,000 UNITS/ML 1ML VIAL SQ SCH (09:12)
[2018-09-11] MEDS: FINASTERIDE 5 MG TABLET (FP) PO SCH (09:13)
[2018-09-11] MEDS: PANTOPRAZOLE 40 MG TABLET (FP) PO SCH (09:13)
[2018-09-11] MEDS: AZITHROMYCIN IVPB 500 MG/250 ML BAG IVPB SCH (09:14)
[2018-09-11] MEDS: CEFTRIAXONE 1 GM in DEXTROSE 5%-WATER 100 ML IVPB SCH (09:14)
--- NOTE | 2018-09-11 11:31 | PN ---
Progress Note, Physician Chief Complaint: Pneumonia LLL Acute COPD Exacerbation improving History of Present Illness: NAD awaiting bed [facility] - Current Medication List Current Medications: Active Medications Acetaminophen (Tylenol -) 650 mg PO Q4H PRN PRN Reason: FEVER Last Admin: 09/05/18 17:26 Dose: 650 mg Albuterol/Ipratropium (Duoneb -) 1 amp NEB RQID [facility] Last Admin: 09/11/18 08:57 Dose: 1 amp Clozapine (Clozaril -) 200 mg PO TID [facility] Last Admin: 09/11/18 06:12 Dose: 200 mg Finasteride (Proscar -) 5 mg PO DAILY [facility] Last Admin: 09/11/18 09:13 Dose: 5 mg Heparin Sodium (Porcine) (Heparin -) 5,000 unit SQ BID [facility] Last Admin: 09/11/18 09:12 Dose: 5,000 unit Sodium Chloride (Normal Saline -) 1,000 mls @ 75 mls/hr IV ASDIR [facility] Last Admin: 09/10/18 22:39 Dose: 75 mls/hr Insulin Aspart (Novolog Vial) 1 units SQ [facility]; Protocol Last Admin: 09/11/18 06:14 Dose: Not Given Pantoprazole Sodium (Protonix -) 40 mg PO DAILY [facility] Last Admin: 09/11/18 09:13 Dose: 40 mg Ramipril (Altace -) 5 mg PO DAILY [facility] Last Admin: 09/11/18 09:12 Dose: 5 mg Tamsulosin HCl (Flomax -) 0.4 mg PO DAILY@0830 [facility] Last Admin: 09/11/18 09:08 Dose: 0.4 mg - Objective Vital Signs: Vital Signs Temperature 98.7 F 09/11/18 06:00 Pulse Rate 68 09/11/18 06:00 Respiratory Rate 20 09/11/18 06:00 Blood Pressure 147/76 09/11/18 06:00 O2 Sat by Pulse Oximetry (%) 98 09/10/18 21:00 Constitutional: Yes: Well Nourished, No Distress, Calm Cardiovascular: Yes: Regular Rate and Rhythm Respiratory: Yes: Regular Gastrointestinal: Yes: Normal Bowel Sounds, Soft Musculoskeletal: Yes: WNL Extremities: Yes: WNL Edema: No Peripheral Pulses WNL: Yes Neurological: Yes: Alert, Oriented Psychiatric: Yes: Alert, Oriented Labs: CBC, BMP 09/10/18 10:30 09/10/18 10:30 INR, PTT INR 1.14 (0.83-1.09) H 09/04/18 13:45 Problem List - Problems (1) Altered mental status Assessment/Plan: -improved -2/2 to metabolic encephalopathy Code(s): R41.82 - ALTERED MENTAL STATUS, UNSPECIFIED (2) Hyponatremia Assessment/Plan: -resolved Code(s): E87.1 - HYPO-OSMOLALITY AND HYPONATREMIA (3) Pneumonia Assessment/Plan: -will be discharged on PO abx to complete at [place] Code(s): J18.9 - PNEUMONIA, UNSPECIFIED ORGANISM (4) Schizophrenia Assessment/Plan: -seen by psychiatry -Clozapine Code(s): F20.9 - SCHIZOPHRENIA, UNSPECIFIED Assessment/Plan see problem list
[2018-09-11 15:25] VITALS: BP 143/64; PULSE 72; TEMP 98.8
== END 2018-09-11 15:42 | disposition home or self-care (01) | DRG 139 ==
LOC: JER 13:13 → JERBED 17:28 → J5S 21:07
PROVIDERS: ADMIT Internal Medicine; ATTEND Family Medicine
PROC: 3E0F7GC Introduction of Other Therapeutic Substance into Respiratory Tract, Via Natural or Artificial Opening (ICD-10-PCS; principal; 2018-09-04)
DX: J18.9 Pneumonia, unspecified organism (principal); G92 Toxic encephalopathy; E87.1 Hypo-osmolality and hyponatremia; J44.1 Chronic obstructive pulmonary disease with (acute) exacerbation; F03.90 Unspecified dementia, unspecified severity, without behavioral disturbance, psychotic disturbance, mood disturbance, and anxiety; F20.9 Schizophrenia, unspecified; I10 Essential (primary) hypertension; N40.0 Benign prostatic hyperplasia without lower urinary tract symptoms; I25.10 Atherosclerotic heart disease of native coronary artery without angina pectoris; F17.210 Nicotine dependence, cigarettes, uncomplicated; E78.5 Hyperlipidemia, unspecified; F20.0 Paranoid schizophrenia; E11.9 Type 2 diabetes mellitus without complications; Z79.84 Long term (current) use of oral hypoglycemic drugs; R91.1 Solitary pulmonary nodule
CPT/HCPCS: 36415; 70450-TC; 71045-TC-FY; 71250-TC; 80048; 80053; 80307; 81003; 81015; 82550; 82553; 82607; 82728; 82803; 82962; 83036; 83540; 83550; 83605; 83735; 84439; 84443; 84484; 85025; 85027; 85610; 85730; 86850; 86900; 86901; 87040; 87086; 93005; 93010; 94640; 97116-GP; 97161-GP; 99283-25; J0131; J1644; J7030

== ENCOUNTER 2022-03-08 11:02 | Day surgery (SDC) | payer OTHER ==
[2022-03-08 11:32] VITALS: TEMP 98.3
[2022-03-08] MEDS ORDERED: FERRIC CARBOXYMALTOSE 750 MG in SODIUM CHLORIDE 250 ML IVPB ONE (11:45)
[2022-03-08 12:37] VITALS: BP 140/72; PULSE 66
== END 2022-03-08 12:45 | disposition home or self-care (01) ==
LOC: FINFUSION 11:02 → FM/S 11:04 → FINFUSION 12:45
PROVIDERS: ATTEND Family Medicine
PROC: 3E033GC Introduction of Other Therapeutic Substance into Peripheral Vein, Percutaneous Approach (ICD-10-PCS; principal; 2022-03-08)
DX: D50.9 Iron deficiency anemia, unspecified (principal)
CPT/HCPCS: 96365; J1439

== ENCOUNTER 2022-03-17 11:45 | Day surgery (SDC) | payer OTHER ==
[2022-03-17] MEDS ORDERED: FERRIC CARBOXYMALTOSE 750 MG in SODIUM CHLORIDE 250 ML IVPB ONE (12:15)
[2022-03-17 14:05] VITALS: BP 106/58; PULSE 68; TEMP 98.5
== END 2022-03-17 14:06 | disposition home or self-care (01) ==
LOC: FINFUSION 11:45 → FM/S 11:47 → FINFUSION 14:06
PROVIDERS: ATTEND Nurse Practitioner Adult Health
PROC: 3E033GC Introduction of Other Therapeutic Substance into Peripheral Vein, Percutaneous Approach (ICD-10-PCS; principal; 2022-03-17)
DX: D50.9 Iron deficiency anemia, unspecified (principal)
CPT/HCPCS: 96365; J1439